=== PATIENT | male | born 2000 | race Caucasian/White ===

== ENCOUNTER 2022-12-03 11:07 | Emergency (ER) | payer OTHER ==
[2022-12-03] MEDS ORDERED: Ketorolac 30 MG/ML SDV IM STA (11:30)
[2022-12-03] MEDS ORDERED: Lidocaine 2% Viscous Solution 15 ML UD PO STA (11:30)
== END 2022-12-03 12:24 | disposition home or self-care (01) ==
LOC: FB.ED 11:07
DX: T21.23XA Burn of second degree of upper back, initial encounter (principal); X11.8XXA Contact with other hot tap-water, initial encounter; Y99.0 Civilian activity done for income or pay
CPT/HCPCS: 96372; 99283; A9270-GY; J1885